=== PATIENT | female | born 1960 | race African-American/Black ===

== ENCOUNTER 2020-10-08 11:33 | Emergency (ER) | payer BC ==
[~2020-10-08] VITALS: Ht 160 cm; Wt 99.0 kg
[~2020-10-08 11:33] MED LIST: DAYQUIL; DM/P295L17; HYDR25TA
[2020-10-08] MEDS ORDERED: LIDOCAINE 5% PATCH TOP SCH (15:30)
[2020-10-08] MEDS ORDERED: HYDROCODONE/ACETAMINOPHEN 5/325MG TABLET PO ONE (15:30)
[2020-10-08] MEDS ORDERED: LIDO1ADH5 TP (15:49)
[2020-10-08] MEDS ORDERED: HYDR-4001 MT (15:49)
[2020-10-08 16:09] VITALS: BP 152/87
== END 2020-10-08 16:19 | disposition home or self-care (01) ==
LOC: ER 11:33
DX: G89.29 Other chronic pain (principal); M54.5 Low back pain; I10 Essential (primary) hypertension; F17.210 Nicotine dependence, cigarettes, uncomplicated
CPT/HCPCS: 99283